=== PATIENT | female | born 1975 | race Caucasian/White ===

== ENCOUNTER 2016-07-01 17:37 | Inpatient (IN) | payer SELFPAY ==
[2016-07-01] MEDS ORDERED: ONDANSETRON HCL 4 MG/2 ML VIAL ONE (17:45)
[2016-07-01] MEDS ORDERED: MORPHINE SULFATE 8 MG/ML INJ ONE (17:45)
[2016-07-01] MEDS ORDERED: ceFAZolin 2 GM PREMIX 50 ML ONE (17:45)
[2016-07-01] MEDS ORDERED: DIPHTH/TETANUS/ACEL PERTUSSIS (BOOSTER) 0.5 ML VIAL/PFS IM ONE (17:46)
[2016-07-01 17:50] VITALS: O2SAT 99
[2016-07-01] MEDS ORDERED: ONDANSETRON HCL 4 MG/2 ML VIAL IV PRN ×2 (18:00→19:30)
[2016-07-01] MEDS ORDERED: SODIUM CHLORIDE 0.9% FLUSH 10 ML FLUSH IV FLUSH PRN (18:00)
[2016-07-01] MEDS ORDERED: NALOXONE HCL 0.4 MG/ML AMP IV PRN (18:00)
[2016-07-01] MEDS ORDERED: Post-op Orders (for Pharmacy) MISC XX ONE (18:00)
[2016-07-01] MEDS ORDERED: ACETAMINOPHEN/HYDROcodone 325 MG/5 MG TAB PO PRN (18:00)
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
[2016-07-01 18:06] LABS: I-STAT POTASSIUM 4.1 MMOL/L (3.5-4.9)
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
[2016-07-01] MEDS ORDERED: LIDOCAINE 1%/EPINEPHrine 1:100,000 SOLN 20 ML VIAL INFIL ONE (18:15)
[2016-07-01 18:18] LABS: APTT (PATIENT) 20.9 SEC (24.3-30.1); PROTHROMBIN TIME - PATIENT 11.4 SEC (9.8-11.6)
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
[2016-07-01] MEDS: PANTOPRAZOLE SODIUM 40 MG VIAL IV SCH (18:30)
[2016-07-01 18:32] LABS: AUTOMATED NEUTROPHIL # 4.5 TH/MM3 (1.8-7.7); BASOPHIL % 0.5 % (0.0-2.0); EOSINOPHIL # 0.1 TH/MM3 (0-0.4); EOSINOPHIL % 1.6 % (0.0-4.0); HEMATOCRIT 35.2 % (35.0-46.0); HEMO FLAGS DIFF FINAL; LYMPH % 21.8 % (9.0-44.0); LYMPHOCYTE # 1.4 TH/MM3 (1.0-4.8); MEAN CELL VOLUME 88.6 FL (80.0-100.0); MEAN CORPUSCULAR HEMOGLOBIN 29.7 PG (27.0-34.0); MEAN CORPUSCULAR HGB CONC 33.5 % (32.0-36.0); MONO % 6.9 % (0.0-8.0); NEUT % 69.2 % (16.0-70.0); PLATELET COUNT 243 TH/MM3 (150-450); RED BLOOD COUNT 3.97 MIL/MM3 (4.00-5.30); RED CELL DISTRIBUTION WIDTH 13.1 % (11.6-17.2); WHITE BLOOD COUNT 6.4 TH/MM3 (4.0-11.0)
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
[2016-07-01 19:19] VITALS: BP 117/62; PULSE 84; RESP 14; O2SAT 98
[2016-07-01] MEDS: HYDROmorphone HCL PF 1 MG/ML VIAL IV PRN ×2 (19:19→22:50)
[2016-07-01 19:20] VITALS: RESP 14; O2SAT 100
[2016-07-01] MEDS ORDERED: SODIUM CHLORIDE 0.9% FLUSH 10 ML FLUSH IVF PRN (19:30)
[2016-07-01] MEDS ORDERED: ACETAMINOPHEN 325 MG TAB PO PRN (19:30)
[2016-07-01 20:30] VITALS: BP 110/68; PULSE 91; RESP 17; TEMP 98.3; O2SAT 96
[2016-07-01] MEDS ORDERED: SODIUM CHLORIDE 0.9% FLUSH 10 ML FLUSH IV FLUSH SCH ×2 (21:00)
[2016-07-02] VITALS (7 sets, daily range): BP systolic 99–105; BP diastolic 56–75; PULSE 68–98; RESP 16–17; TEMP 95.4–97.7; O2SAT 98–100
[2016-07-02] MEDS ORDERED: LACTATED RINGER'S 1000 ML IV PRN (01:15)
[2016-07-02] MEDS ORDERED: SODIUM CHLORID 0.9% 500 ML IV PRN (01:15)
[2016-07-02] MEDS ORDERED: CHLORHEXIDINE GLUCONATE 2 % 1 PACK (2 CLOTHS) TOPICAL PRN (01:15)
[2016-07-02] MEDS ORDERED: POVIDONE IODINE 5% (ANTISEPSIS KIT) 4 APPLICATIONS EACH NARE PRN (01:15)
[2016-07-02] MEDS ORDERED: INSULIN HUMAN REGULAR 1,000 UNITS/10 ML VIAL SQ PRN (01:15)
[2016-07-02] MEDS: HYDROmorphone HCL PF 1 MG/ML VIAL IV PRN ×5 (02:43→23:04)
[2016-07-02] MEDS: SODIUM CHLOR 0.9% 1000 ML INJ 1,000 ML IV SCH ×2 (04:00→15:18)
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
[2016-07-02] MEDS ORDERED: BUPIVACAINE/EPINEPHRINE 0.25% PF 10 ML VIAL ONE (07:06)
[2016-07-02] MEDS ORDERED: VANCOMYCIN HCL 1000 MG VIAL ONE (07:07)
[2016-07-02] MEDS ORDERED: SODIUM CHLOR 0.9% 250 ML INJ 250 ML ONE (07:07)
[2016-07-02] MEDS ORDERED: ceFAZolin INJ 1,000 MG VIAL ONE (07:07)
[2016-07-02] MEDS ORDERED: GENTAMICIN SULFATE 80 MG/2 ML VIAL ONE (07:07)
[2016-07-02] MEDS ORDERED: fentaNYL CITRATE 250 MCG/5 ML AMP ONE (07:11)
[2016-07-02] MEDS ORDERED: ACETAMINOPHEN 1000 MG/100 ML VIAL IV ONE (07:11)
[2016-07-02] MEDS ORDERED: FAMOTIDINE 20 MG/2 ML VIAL ONE (07:11)
[2016-07-02] MEDS ORDERED: MIDAZOLAM HCL 2 MG/2 ML VIAL ONE (07:11)
[2016-07-02 07:40] LABS: AUTOMATED NEUTROPHIL # 3.4 TH/MM3 (1.8-7.7); BASOPHIL % 0.4 % (0.0-2.0); EOSINOPHIL # 0.1 TH/MM3 (0-0.4); EOSINOPHIL % 2.7 % (0.0-4.0); HEMATOCRIT 31.5 % (35.0-46.0); HEMO FLAGS DIFF FINAL; LYMPH % 19.1 % (9.0-44.0); MEAN CELL VOLUME 89.5 FL (80.0-100.0); MEAN CORPUSCULAR HEMOGLOBIN 30.1 PG (27.0-34.0); MEAN CORPUSCULAR HGB CONC 33.7 % (32.0-36.0); MONO % 11.4 % (0.0-8.0); NEUT % 66.4 % (16.0-70.0); PLATELET COUNT 175 TH/MM3 (150-450); RED BLOOD COUNT 3.52 MIL/MM3 (4.00-5.30); RED CELL DISTRIBUTION WIDTH 13.2 % (11.6-17.2); WHITE BLOOD COUNT 5.1 TH/MM3 (4.0-11.0)
[2016-07-02] MEDS ORDERED: SUGAMMADEX SODIUM 200 MG/2 ML VIAL IV PUSH ONE ×2 (07:56)
[2016-07-02] MEDS ORDERED: MORPHINE SULFATE 4 MG/ML INJ IV PUSH PRN (08:00)
[2016-07-02] MEDS ORDERED: diphenhydrAMINE HCL 25 MG CAP PO PRN (08:00)
[2016-07-02] MEDS ORDERED: SODIUM CHLORIDE 0.9% FLUSH 5 ML FLUSH IVF PRN (08:00)
--- NOTE | 2016-07-02 08:03 | PD.OP ---
cc: Zach La MD Operative Report Date of Surgery: July 02, 2016 Preoperative Diagnosis: Right hip intertrochanteric fracture Postoperative Diagnosis: Procedure: Right hip reduction and intramedullary nail fixation Anesthesia: Gen. Surgeon: Zach La Surgical Scheduler(s): DAVI Wheeler PA-C The surgical procedure was assisted by my physician floral assistant. My P.A. presence was necessary throughout this case for the manipulation and positioning of the surgical extremity. My P.A. was assisting me throughout the duration of this procedure. The skill set of a physician floral assistant was medically necessary to complete this procedure. During the surgical case the certified surgical tech/first assistant was working at the back table and the physician floral assistant was directly assisting me. Operation and Findings: Implants used: 10 mm 130 Synthes TFNA short troch nail Plan of activity: Weight-bear as tolerated Patient was seen and evaluated preoperatively. The patient has significant hip pain from intertrochanteric hip fracture. The risk and benefits of surgery were discussed in depth with the patient to include bleeding infection nonunion malunion and need for hip replacement painful hardware as well as medical competitions including but not stroke heart attack and . Informed consent was obtained. Operative site was marked. Patient was brought to the operating room and placed on fracture table. IV sedation was administered by anesthesiologist. Timeout procedure was performed. Hip and leg were prepped with alcohol followed by DuraPrep and draped in the usual sterile fashion. IV antibiotics were given prior to incision. Procedure began with reduction of fracture. Traction was applied. The leg was manipulated to achieve reduction. Excellent reduction was achieved. Fluoroscopy was used to confirm reduction. A three inch incision was made proximal to the trochanter. Subcutaneous tissue was dissected bluntly. Guidepin was placed at the tip of the trochanter and advanced into the femoral canal. Fluoroscopy confirmed appropriate guidepin placement. A opening reamer was placed over the guidepin. The Synthes TFNA nail was attached to the insertion handle. Nail was now placed through the tip of the trochanter into the femoral canal. Fluoroscopy confirmed appropriate nail placement. A second incision was made over the lateral thigh. Cannulas were placed through the insertion handle down to the femur. Guidepin was now placed through the femoral nail into the center of the femoral head. Fluoroscopy confirmed appropriate guidepin placement. Screw length was measured. Cannulated drill was placed over the guidepin. Appropriate length lag screw was now placed. Traction was released and compression was applied. The set screw was now tightened in dynamic mode. Using the insertion handle as a guide a distal interlocking screw was drilled and placed. Final fluoroscopy revealed well aligned fracture with well-placed hardware. Incision was closed with 3-0 Vicryl and deniz. Sterile dressings were applied. Patient was awakened and transferred to recovery room. Zach La MD July 02, 2016 08:03
[2016-07-02 08:05] LABS: BICARBONATE 27.1 MEQ/L (21.0-32.0); POTASSIUM 3.8 MEQ/L (3.5-5.1)
[2016-07-02] MEDS ORDERED: DO NOT ADM ANY ANTICOAGULANT DRUGS PRN (08:15)
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
[2016-07-02] MEDS ORDERED: *morphine SULFATE 8 MG/ML PERIprocedure ONLY ONE ×3 (08:30→08:45)
[2016-07-02] MEDS ORDERED: CRUTMIS25 (08:39)
[2016-07-02] MEDS ORDERED: *HYDROmorphone PF 1 MG VIAL PERIprocedural Use ONLY ONE (08:51)
[2016-07-02] MEDS: SODIUM CHLORIDE 0.9% FLUSH 5 ML FLUSH IVF SCH ×2 (09:00→21:19)
[2016-07-02] MEDS ORDERED: ERGOCALCIFEROL (VIT D2) 50,000 UNIT CAP PO ONE (09:00)
[2016-07-02] MEDS: CHOLECALCIFEROL (VIT D3) 5000 UNIT CAP PO SCH (09:00)
[2016-07-02] MEDS: DOCUSATE SODIUM 100 MG CAP PO SCH ×2 (09:00→21:19)
[2016-07-02] MEDS: CALCIUM/VITAMIN D 250 MG/125 U TAB PO SCH ×3 (09:00→17:07)
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
[2016-07-02] MEDS: ACETAMINOPHEN/HYDROcodone 325 MG/7.5 MG TAB PO PRN ×3 (12:41→21:19)
[2016-07-02] MEDS ORDERED: NEOSTIGMINE 3 MG/3 ML SYR IV ONE (13:07)
[2016-07-02] MEDS ORDERED: ONDANSETRON HCL 4 MG/2 ML VIAL IV PUSH ONE (13:07)
[2016-07-02] MEDS ORDERED: LACTATED RINGER'S 1000 ML INJ 1,000 ML IV ONE (13:07)
[2016-07-02] MEDS ORDERED: PROPOFOL 200 MG/20 ML AMP IV ONE (13:07)
[2016-07-02] MEDS ORDERED: PHENYLEPH/NS 1000 MCG/10 ML SYR IV ONE (13:07)
[2016-07-02] MEDS ORDERED: ePHEDrine/NS 50 MG/5 ML SYR IV ONE (13:07)
--- NOTE | 2016-07-02 15:30 | RADRPT ---
EXAM DATE/TIME: 07/02/2016 07:56 [facility] COMPARISON: PELVIS AP ONLY, July 01, 2016, 17:31. INDICATIONS : ORIF right hip with intertrochanteric nail. MEDICAL HISTORY : None. SURGICAL HISTORY : None. ENCOUNTER: Subsequent ACUITY: 2 days PAIN SCORE: Non-responsive. LOCATION: Right hip. FINDINGS: Multiple views of the right hip were obtained and demonstrate the patient status post open rigid inte rnal fixation with intramedullary patrice and locking cannulated screw. The fracture fragments are in shawn tomic alignment. CONCLUSION: Status post open rigid internal fixation. Titi Covington MD on July 02, 2016 at 15:24 Board Certified Radiologist. This report was verified electronically.
[2016-07-02] MEDS: PANTOPRAZOLE SODIUM 40 MG VIAL IV SCH (19:16)
[2016-07-02] MEDS: MAGNESIUM HYDROXIDE SUSP 30 ML CUP PO SCH (21:19)
[2016-07-03 00:50] VITALS: BP 101/66; PULSE 70; RESP 17; TEMP 97.8; O2SAT 100
[2016-07-03] MEDS ORDERED: ALPR0.25 PO (01:43)
[2016-07-03] MEDS ORDERED: ZOLO25TA PO (01:43)
[2016-07-03] MEDS: ACETAMINOPHEN/HYDROcodone 325 MG/7.5 MG TAB PO PRN ×5 (01:49→20:31)
[2016-07-03 04:50] VITALS: BP 99/66; PULSE 69; RESP 16; TEMP 98; O2SAT 99
[2016-07-03 07:50] LABS: HEMATOCRIT 27.8 % (35.0-46.0); REVIEW FLAG FINAL
[2016-07-03 08:00] VITALS: BP 114/78; PULSE 82; RESP 18; TEMP 97.4; O2SAT 100
[2016-07-03] MEDS: SODIUM CHLORIDE 0.9% FLUSH 5 ML FLUSH IVF SCH ×2 (09:00→20:32)
[2016-07-03] MEDS: DOCUSATE SODIUM 100 MG CAP PO SCH (09:24)
[2016-07-03] MEDS: CALCIUM/VITAMIN D 250 MG/125 U TAB PO SCH ×3 (09:24→16:43)
[2016-07-03] MEDS: ENOXAPARIN SODIUM 30 MG/0.3 ML SYRINGE SQ SCH (09:24)
[2016-07-03] MEDS: CHOLECALCIFEROL (VIT D3) 5000 UNIT CAP PO SCH (09:24)
[2016-07-03] MEDS: HYDROmorphone HCL PF 1 MG/ML VIAL IV PRN ×3 (09:40→18:39)
[2016-07-03] MEDS: SODIUM CHLOR 0.9% 1000 ML INJ 1,000 ML IV SCH ×2 (10:00)
[2016-07-03 12:00] VITALS: BP 122/73; PULSE 95; RESP 18; TEMP 98.4; O2SAT 100
--- NOTE | 2016-07-03 13:22 | HHI.PR ---
Subjective Subjective Notes Got OOB to use restroom today, reports she experienced 10/10 pain Doesn't feel like she is ready to go home yet, states she lives alone Objective Vitals/I&O Vital Signs Date Time Temp Pulse Resp B/P Pulse Ox O2 Delivery O2 Flow Rate FiO2 07/03/16 08:00 97.4 82 18 114/78 100 07/02/16 10:29 21 07/02/16 09:00 Nasal Cannula 2 Labs Laboratory Tests Test 07/03/16 07:01 Hemoglobin 9.7 Hematocrit 27.8 Radiology Last Impressions Elbow X-Ray 07/01/16 1816 Signed Impressions: Service Date/Time: Friday, July 01, 2016 18:26 - CONCLUSION: Comminuted fracture posteromedially which I believe is off of the olecranon. Lev Winslow MD Pelvis X-Ray 07/01/161746 Signed Impressions: Service Date/Time: Friday, July 01, 2016 17:31 - CONCLUSION: Intact pelvis. Lev Winslow MD Chest X-Ray 07/01/161746 Signed Impressions: Service Date/Time: Friday, July 01, 2016 17:31 - CONCLUSION: No acute abnormality demonstrated one view supine trauma chest x-ray. Lev Winslow MD Femur X-Ray 07/01/16 0000 Signed Impressions: Service Date/Time: Friday, July 01, 2016 17:31 - CONCLUSION: Comminuted, moderately displaced and angulated intertrochanteric fracture of the right femur. Lev Winslow MD Narrative Exam GENERAL: 41-year-old well-nourished, well developed female lying in bed. SKIN: Warm and dry. HEAD: Atraumatic. Normocephalic. ENT: Mucous membranes pink and moist. NECK: Trachea midline. No JVD. CARDIOVASCULAR: Regular rate and rhythm. RESPIRATORY: No accessory muscle use. Lungs clear to auscultation. Breath sounds equal bilaterally. GASTROINTESTINAL: Abdomen soft, non-tender, nondistended. + BS. MUSCULOSKELETAL: Extremities without cyanosis, or edema. No obvious deformities. Left elbow Constantine wrap in place. NEUROLOGICAL: Awake and alert. Normal speech. A/P Problem List: (1) Laceration of left elbow (2) Fracture of right femur Assessment and Plan INJURIES: LEFT elbow lac (sutures) LEFT elbow avulsion fx RIGHT femur fx PMHx: LEFT knee surgery, anxiety, depression 07/02: I&D of left elbow laceration 07/02: Reduction right femur with IM nail for RIGHT femur Diet: Regular, tolerating Pulm: IS, encourage patient use Pain: [place], Dilaudid IV. Pain better today, required Dilaudid when getting OOB. Activity: OOB. PT and OT evaluating. (WBAT RLE) GI: Pepcid Bowel: Tali-colace. MOM. No BM yet. Lactulose x1 DVT: SCDs. Lovenox 30 QD - Right femur fracture Orthopedics following 07/02 reduction right femur with IM nail Ice for comfort Pain control PT and OT evaluating WBAT RLE Hgb 9.7, stable- recheck H&H in AM - Left elbow laceration, Left elbow avulsion fracture Orthopedics following 07/02: I&D of left elbow laceration Pain control Daily dressing changes PT and OT ordered Plan of care discussed with patient and RN at bedside. Case management consult to assist with discharge planning. Patient plans to return home upon discharge. Problem Qualifiers (1) Laceration of left elbow: Qualified Code: S51.012A - Laceration of left elbow, initial encounter (2) Fracture of right femur: Qualified Code: S72.21XA - Closed displaced subtrochanteric fracture of right femur, initial encounter Richard Fischer July 03, 2016 13:22
[2016-07-03] MEDS ORDERED: LACTULOSE SYRUP 20 GM/30 ML CUP PO ONE (13:30)
[2016-07-03 16:00] VITALS: BP 122/71; PULSE 80; RESP 18; TEMP 97.3; O2SAT 100
--- NOTE | 2016-07-03 18:25 | PD.ORT.PN ---
Subjective Subjective Remarks Resting comfortably with no new complaints. Objective Vitals Vital Signs Date Time Temp Pulse Resp B/P Pulse Ox O2 Delivery O2 Flow Rate FiO2 07/03/16 16:00 97.3 80 18 122/71 100 07/03/16 12:00 98.4 95 18 122/73 100 07/03/16 08:00 97.4 82 18 114/78 100 07/03/16 04:50 98.0 69 16 99/66 99 07/03/16 00:50 97.8 70 17 101/66 100 07/02/16 20:50 97.7 70 17 101/75 99 I/O 07/02/16 07/02/16 07/02/16 07/03/16 07/03/16 07/03/16 07:00 15:00 23:00 07:00 15:00 23:00 Intake Total 200 ml 980 ml 240 ml 240 ml 600 ml Output Total 200 ml 1200 ml 300 ml Balance 0 ml -220 ml -60 ml 240 ml 600 ml Intake Oral 200 ml 480 ml 240 ml 240 ml 600 ml Other 500 ml Output Urine Total 200 ml 1150 ml 300 ml Estimated Blood Loss 50 ml # Voids 0 2 3 # Bowel Movements 0 0 0 0 0 Result Diagram: 07/03/16 0701 07/02/16 0650 Imaging Last 24 hours Impressions Elbow X-Ray 07/01/161815 Signed Impressions: Service Date/Time: Friday, July 01, 2016 18:26 - CONCLUSION: Comminuted fracture posteromedially which I believe is off of the olecranon. Lev Winslow MD Pelvis X-Ray 07/01/161746 Signed Impressions: Service Date/Time: Friday, July 01, 2016 17:31 - CONCLUSION: Intact pelvis. Lev Winslow MD Chest X-Ray 07/01/161746 Signed Impressions: Service Date/Time: Friday, July 01, 2016 17:31 - CONCLUSION: No acute abnormality demonstrated one view supine trauma chest x-ray. Lev Winslow MD Objective Remarks Right upper extremity: Full range of motion and neurovascularly intact Left upper extremity: Clean dry dressings intact. Distally neurovascularly intact with full extension and flexion of fingers. Elbow range of motion is from 20 to 120. Left lower extremity: Full range of motion neurovascularly intact Right lower extremity: Clean dry dressings intact. Compartments soft. No pain with knee or ankle range of motion. Distally intact sensation with good capillary refills. Assessment & Plan Assessment and Plan Right intertrochanteric femur fracture IM nail POD 1 PT weightbearing as tolerated Daily dressing changes beginning POD 2 Left elbow injury with small avulsion fracture Soft dressings Weightbearing as tolerated Orthopedic the plan for discharge tomorrow Follow-up with Dr. La or PA in 2 weeks Titi Zurita Jr. July 03, 2016 18:25
[2016-07-03 20:00] VITALS: BP 116/74; PULSE 98; RESP 16; TEMP 97.9; O2SAT 96
[2016-07-03] MEDS: MAGNESIUM HYDROXIDE SUSP 30 ML CUP PO SCH (20:29)
[2016-07-03] MEDS: DOCUSATE SODIUM 50 MG/SENNA 8.6 MG TAB PO SCH (20:29)
[2016-07-04] VITALS: BP 117/75; PULSE 80; RESP 17; TEMP 97.1; O2SAT 99
[2016-07-04] MEDS: HYDROmorphone HCL PF 1 MG/ML VIAL IV PRN ×3 (01:54→23:13)
[2016-07-04 06:49] LABS: HEMATOCRIT 29.2 % (35.0-46.0); REVIEW FLAG FINAL
[2016-07-04] MEDS: ACETAMINOPHEN/HYDROcodone 325 MG/7.5 MG TAB PO PRN ×4 (06:53→19:42)
[2016-07-04] MEDS ORDERED: HYDR-3288 PO (06:55)
[2016-07-04] MEDS ORDERED: XARE10TA PO (06:55)
--- NOTE | 2016-07-04 06:56 | PD.ORT.PN ---
Subjective Subjective Remarks Resting comfortably with no new complaints. Objective Vitals Vital Signs Date Time Temp Pulse Resp B/P Pulse Ox O2 Delivery O2 Flow Rate FiO2 07/04/16 00:00 97.1 80 17 117/75 99 07/03/16 20:00 97.9 98 16 116/74 96 07/03/16 16:00 97.3 80 18 122/71 100 07/03/16 12:00 98.4 95 18 122/73 100 07/03/16 08:00 97.4 82 18 114/78 100 I/O 07/03/16 07/03/16 07/03/16 07/04/16 07/04/16 07/04/16 07:00 15:00 23:00 07:00 15:00 23:00 Intake Total 240 ml 1320 ml 720 ml Balance 240 ml 1320 ml 720 ml Intake Oral 240 ml 1320 ml 720 ml # Voids 2 5 2 # Bowel Movements 0 1 3 Result Diagram: 07/04/16 0626 07/02/16 0650 Imaging Last 24 hours Impressions Elbow X-Ray 07/01/161815 Signed Impressions: Service Date/Time: Friday, July 01, 2016 18:26 - CONCLUSION: Comminuted fracture posteromedially which I believe is off of the olecranon. Lev Winslow MD Pelvis X-Ray 07/01/161746 Signed Impressions: Service Date/Time: Friday, July 01, 2016 17:31 - CONCLUSION: Intact pelvis. Lev Winslow MD Chest X-Ray 07/01/161746 Signed Impressions: Service Date/Time: Friday, July 01, 2016 17:31 - CONCLUSION: No acute abnormality demonstrated one view supine trauma chest x-ray. Lev Winslow MD Objective Remarks Right upper extremity: Full range of motion and neurovascularly intact Left upper extremity: Clean dry dressings intact. Distally neurovascularly intact with full extension and flexion of fingers. Elbow range of motion is from 20 to 120. Left lower extremity: Full range of motion neurovascularly intact Right lower extremity: Clean dry dressings intact. Compartments soft. No pain with knee or ankle range of motion. Distally intact sensation with good capillary refills. Assessment & Plan Assessment and Plan Right intertrochanteric femur fracture IM nail POD 2 PT weightbearing as tolerated Daily dressing changes Left elbow injury with small avulsion fracture Soft dressings Weightbearing as tolerated Orthopedic the plan for discharge today Follow-up with Dr. La or PA in 2 weeks Ttii Zurita Jr. July 04, 2016 06:56
[2016-07-04 07:55] VITALS: BP 112/73; PULSE 81; RESP 18; TEMP 98.2; O2SAT 99
[2016-07-04] MEDS: DOCUSATE SODIUM 50 MG/SENNA 8.6 MG TAB PO SCH ×2 (09:00→21:00)
[2016-07-04] MEDS: SODIUM CHLORIDE 0.9% FLUSH 5 ML FLUSH IVF SCH ×2 (09:00→21:28)
[2016-07-04] MEDS: CALCIUM/VITAMIN D 250 MG/125 U TAB PO SCH ×3 (09:26→16:36)
[2016-07-04] MEDS: ENOXAPARIN SODIUM 30 MG/0.3 ML SYRINGE SQ SCH (09:26)
[2016-07-04] MEDS: CHOLECALCIFEROL (VIT D3) 5000 UNIT CAP PO SCH (09:26)
[2016-07-04] MEDS: FAMOTIDINE 20 MG TAB PO SCH ×2 (09:26→21:28)
[2016-07-04 11:51] VITALS: BP 124/81; PULSE 100; RESP 18; TEMP 97; O2SAT 99
--- NOTE | 2016-07-04 13:55 | HHI.FF ---
Face to Face Verification Diagnosis: (1) Fracture of right femur Physical Therapy Order: Evaluate and Treat, Improve ambulation, Strength and gait training Home Health Nursing Order: Nursing assessment with vital signs I have seen patient Zoe Brock on 07/04/16. My clinical findings support the need for the requested home health care services because: Limited ability to care for self High risk of falls I certify that my clinical findings support that this patient is homebound because: Post-op weakness Unsteady gait/balance Richard Fischer July 04, 2016 13:54
--- NOTE | 2016-07-04 14:00 | HHI.PR ---
Subjective Subjective Notes + BM Ambulation improving Reports she plans to stay with a friend when she leaves the hospital Objective Vitals/I&O Vital Signs Date Time Temp Pulse Resp B/P Pulse Ox O2 Delivery O2 Flow Rate FiO2 07/04/16 11:51 97.0 100 18 124/81 99 07/02/16 10:29 21 07/02/16 09:00 Nasal Cannula 2 Labs Laboratory Tests Test 07/04/16 06:26 Hemoglobin 9.8 Hematocrit 29.2 Radiology Last Impressions Elbow X-Ray 07/01/16 1816 Signed Impressions: Service Date/Time: Friday, July 01, 2016 18:26 - CONCLUSION: Comminuted fracture posteromedially which I believe is off of the olecranon. Lev Winslow MD Pelvis X-Ray 07/01/16 174 Signed Impressions: Service Date/Time: Friday, July 01, 2016 17:31 - CONCLUSION: Intact pelvis. Lev Winslow MD Chest X-Ray 07/01/16 174 Signed Impressions: Service Date/Time: Friday, July 01, 2016 17:31 - CONCLUSION: No acute abnormality demonstrated one view supine trauma chest x-ray. Lev Winslow MD Femur X-Ray 07/01/16 0000 Signed Impressions: Service Date/Time: Friday, July 01, 2016 17:31 - CONCLUSION: Comminuted, moderately displaced and angulated intertrochanteric fracture of the right femur. Lev Winslow MD Narrative Exam GENERAL: 41-year-old well-nourished, well developed female lying in bed. SKIN: Warm and dry. HEAD: Atraumatic. Normocephalic. ENT: Mucous membranes pink and moist. NECK: Trachea midline. No JVD. CARDIOVASCULAR: Regular rate and rhythm. RESPIRATORY: No accessory muscle use. Lungs clear to auscultation. Breath sounds equal bilaterally. GASTROINTESTINAL: Abdomen soft, non-tender, nondistended. + BS. MUSCULOSKELETAL: Extremities without cyanosis, or edema. No obvious deformities. Left elbow dressing c/d/i. NEUROLOGICAL: Awake and alert. Normal speech. A/P Problem List: (1) Laceration of left elbow (2) Fracture of right femur Assessment and Plan INJURIES: LEFT elbow lac (sutures) LEFT elbow avulsion fx RIGHT femur fx PMHx: LEFT knee surgery, anxiety, depression 07/02: I&D of left elbow laceration 07/02: Reduction right femur with IM nail for RIGHT femur Diet: Regular, tolerating Pulm: IS, encourage patient use Pain: [place], Dilaudid IV. Pain better today, required IV Dilaudid this AM Activity: OOB. PT and OT evaluating. (WBAT RLE, WBAT LUE) GI: Pepcid Bowel: Tali-colace. MOM. LBM 07/04 DVT: SCDs. Lovenox 30 QD - Right femur fracture Orthopedics cleared for discharge 07/02 reduction right femur with IM nail Pain control PT and OT evaluating WBAT RLE Hgb 9.8- stable - Left elbow laceration, Left elbow avulsion fracture Orthopedics cleared for discharge 07/02: I&D of left elbow laceration WBAT LUE Pain control Daily dressing changes PT and OT ordered Plan of care discussed with patient at bedside. Case management consult to assist with discharge planning. Plan discharge home with home health care tomorrow. Remarks seen and examined with DICTAPHONE TRANSCRIBER-agree with assessment and plan stable overall PT Pain control dc soon with homehealth care Problem Qualifiers (1) Laceration of left elbow: Qualified Code: S51.012A - Laceration of left elbow, initial encounter (2) Fracture of right femur: Qualified Code: S72.21XA - Closed displaced subtrochanteric fracture of right femur, initial encounter Richard Fischer July 04, 2016 14:00 Bethany Mcfarland MD July 04, 2016 16:03
[2016-07-04 16:00] VITALS: BP 108/76; PULSE 92; RESP 18; TEMP 97; O2SAT 100
[2016-07-04 20:05] VITALS: BP 124/69; PULSE 90; RESP 17; TEMP 97.9; O2SAT 100
[2016-07-04] MEDS: MAGNESIUM HYDROXIDE SUSP 30 ML CUP PO SCH (21:00)
[2016-07-05 00:05] VITALS: BP 115/67; PULSE 91; RESP 17; TEMP 97.6; O2SAT 99
[2016-07-05] MEDS: ACETAMINOPHEN/HYDROcodone 325 MG/7.5 MG TAB PO PRN ×3 (05:11→11:56)
--- NOTE | 2016-07-05 07:07 | PD.ORT.PN ---
Subjective Subjective Remarks Resting comfortably with no new complaints. Objective Vitals Vital Signs Date Time Temp Pulse Resp B/P Pulse Ox O2 Delivery O2 Flow Rate FiO2 07/05/16 06:14 16 07/05/16 00:05 97.6 91 17 115/67 99 07/04/16 23:46 18 07/04/16 20:05 97.9 90 17 124/69 100 07/04/16 16:00 97.0 92 18 108/76 100 07/04/16 11:51 97.0 100 18 124/81 99 07/04/16 07:55 98.2 81 18 112/73 99 I/O 07/04/16 07/04/16 07/04/16 07/05/16 07/05/16 07/05/16 07:00 15:00 23:00 07:00 15:00 23:00 Intake Total 720 ml 720 ml 240 ml 240 ml Balance 720 ml 720 ml 240 ml 240 ml Intake Oral 720 ml 720 ml 240 ml 240 ml # Voids 2 3 2 5 # Bowel Movements 3 2 0 1 Result Diagram: 07/04/16 0626 07/02/16 0650 Imaging Last 24 hours Impressions Elbow X-Ray 07/01/161815 Signed Impressions: Service Date/Time: Friday, July 01, 2016 18:26 - CONCLUSION: Comminuted fracture posteromedially which I believe is off of the olecranon. Lev Winslow MD Pelvis X-Ray 07/01/161746 Signed Impressions: Service Date/Time: Friday, July 01, 2016 17:31 - CONCLUSION: Intact pelvis. Lev Winslow MD Chest X-Ray 07/01/161746 Signed Impressions: Service Date/Time: Friday, July 01, 2016 17:31 - CONCLUSION: No acute abnormality demonstrated one view supine trauma chest x-ray. Lev Winslow MD Objective Remarks Right upper extremity: Full range of motion and neurovascularly intact Left upper extremity: Clean dry dressings intact. Distally neurovascularly intact with full extension and flexion of fingers. Elbow range of motion is from 20 to 120. Left lower extremity: Full range of motion neurovascularly intact Right lower extremity: Clean dry dressings intact. Compartments soft. No pain with knee or ankle range of motion. Distally intact sensation with good capillary refills. Assessment & Plan Assessment and Plan Right intertrochanteric femur fracture IM nail POD 3 PT weightbearing as tolerated Daily dressing changes Left elbow injury with small avulsion fracture Soft dressings Weightbearing as tolerated Orthopedic cleared for discharge today Follow-up with Dr. La or PA in 2 weeks Titi Zurita Jr. July 05, 2016 07:07
[2016-07-05 07:54] VITALS: BP 97/75; PULSE 93; RESP 18; TEMP 97.2; O2SAT 97
[2016-07-05] MEDS: DOCUSATE SODIUM 50 MG/SENNA 8.6 MG TAB PO SCH (08:33)
[2016-07-05] MEDS: FAMOTIDINE 20 MG TAB PO SCH (08:33)
[2016-07-05] MEDS: CHOLECALCIFEROL (VIT D3) 5000 UNIT CAP PO SCH (08:33)
[2016-07-05] MEDS: SODIUM CHLORIDE 0.9% FLUSH 5 ML FLUSH IVF SCH (08:34)
[2016-07-05] MEDS: ENOXAPARIN SODIUM 30 MG/0.3 ML SYRINGE SQ SCH (08:34)
[2016-07-05] MEDS: CALCIUM/VITAMIN D 250 MG/125 U TAB PO SCH ×2 (08:34→11:56)
[2016-07-05 12:00] VITALS: BP 102/78; PULSE 100; RESP 18; TEMP 96.7; O2SAT 100
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
== END 2016-07-05 15:43 | disposition home or self-care (01) | DRG 482 ==
LOC: NEPI 17:37 → NEDA 19:28 → EDBD 19:28 → N06A 20:35
PROVIDERS: ADMIT Surgery; ATTEND Surgery
PROC: 0QS636Z Reposition Right Upper Femur with Intramedullary Internal Fixation Device, Percutaneous Approach (ICD-10-PCS; principal; 2016-07-02 07:15)
DX: S72.141A Displaced intertrochanteric fracture of right femur, initial encounter for closed fracture (principal); S52.025A Nondisplaced fracture of olecranon process without intraarticular extension of left ulna, initial encounter for closed fracture; S51.012A Laceration without foreign body of left elbow, initial encounter; V28.0XXA Motorcycle driver injured in noncollision transport accident in nontraffic accident, initial encounter; Y93.89 Activity, other specified; Y92.9 Unspecified place or not applicable
CPT/HCPCS: 27250; 71010; 72170; 73070; 73080; 73502; 73551; 76000; 80048; 82306; 82435; 82565; 82947; 84132; 84295; 84520; 85014; 85018; 85025; 85610; 85730; 86850; 86900; 86901; 90471; 90715; 94150; 96374; 96375; C1713; C9113; E0113; J0131; J0690; J1170; J1580; J1650; J2250; J2270; J2370; J2405; J2710; J3010; J3370; J7030; J7050; J7120